=== PATIENT | female | born 1970 | race African-American/Black ===

== ENCOUNTER 2021-07-12 20:47 | Emergency (ER) | payer MEDICAID, OTHER ==
[2014-03-28 13:00] VITALS: BP 136/72
[~2021-07-12 20:47] MED LIST: AMOX1TAB61 PO; SELE200T10 PO; TRAM50TA PO; VARE1TAB5 PO
== END 2021-07-13 00:01 | disposition left against medical advice (07) ==
LOC: ER 20:47
DX: R09.89 Other specified symptoms and signs involving the circulatory and respiratory systems (principal); Z53.21 Procedure and treatment not carried out due to patient leaving prior to being seen by health care provider